=== PATIENT | male | born 1990 | race Caucasian/White ===

== ENCOUNTER 2016-11-05 11:55 | Emergency (ER) | payer OTHER ==
--- NOTE | 2016-11-05 12:12 | ED CLINICAL REPORT ---
Clinical Report - Physicians/Mid Levels [facility] [address] [place] [address] 11/05/2016 12:08 Patient: BEAU GANDHI Time Seen: 1211. Arrived- Police present. Historian- patient. HISTORY OF PRESENT ILLNESS Chief Complaint: needs clearance for alf--no complaints. This started just prior to arrival and is now gone. At its maximum, severity described as 0 / 10. When seen in the E.D., severity described as 0 / 10. Modifying factors. Not worsened by anything. Not relieved by anything. No current or associated symptoms. (Police state pt was caught stealing a car, and after a short winsome in the car, fled on foot. Police state pt gave up fleeing after a short distance, and was arrested without incident. Pt denies injury or complaints. No recent illness.). Similar symptoms previously: None. Recent medical care: Not recently seen/assessed. REVIEW OF SYSTEMS No fever, sore throat, sinus drainage, nasal congestion or cough. No difficulty breathing, chest pain, abdominal pain, nausea or vomiting. No diarrhea, black stools, chills, difficulty with urination or skin rash. No back pain, calf pain, headache, blackouts or double vision. No difficulty with ambulation. All systems otherwise negative, except as recorded above. PAST HISTORY Problems: Ureterolithiasis. Pharyngitis. Tetanus Status. Depression. Anxiety Reaction. Additional Surgeries: no known surgeries. Medications: None. Allergies: No Known Drug Allergy. SOCIAL HISTORY Smoker- current status unknown. Occasional alcohol use. No drug use. ADDITIONAL NOTES The nursing notes have been reviewed. PHYSICAL EXAM Vital Signs: 11/05/2016 12:12 BP: 131/81. HR: 105. RR: 16. Temp: 98.9 F. Pain level now: 0/10. 11/05/2016 12:12 O2 saturation: 95%. Have been reviewed. Appearance: Alert. No acute distress. Eyes: Pupils equal, round and reactive to light. Eyes normal inspection. ENT: Nose normal. Neck: Normal inspection. CVS: Normal heart rate and rhythm. Heart sounds normal. Pulses normal. Respiratory: No respiratory distress. Breath sounds normal. Abdomen: No visible injury. Soft and nontender. Back: Normal inspection. Skin: Skin warm and dry. Normal skin color. No rash. Normal skin turgor. Extremities: No lower extremity edema. Neuro: Oriented X 3. No motor deficit. No sensory deficit. LABS, X-RAYS, AND EKG Pulse Oximetry: 11/05/2016 12:12 O2 saturation: 95%. (FIO2 - room air). Interpretation: normal. PROGRESS AND PROCEDURES Course of Care: No emergent condition identified. Patient counseled in person regarding the patient's stable condition, diagnosis and need for follow-up. Concerns were addressed. Old medical records reviewed. Disposition: Discharged. Condition: stable. CLINICAL IMPRESSION Normal exam upon presentation and while in the ED. INSTRUCTIONS (CLEAR TO BOOK.). Warnings: GENERAL WARNINGS: Return or contact your physician immediately if your condition worsens or changes unexpectedly, if not improving as expected, or if other problems arise. Follow-up: Follow up with your doctor as needed. Understanding of the discharge instructions verbalized by patient. (Electronically signed by Jihan Galarza MD 11/07/2016 13:51)
--- NOTE | 2016-11-05 12:12 | ED CLINICAL REPORT ---
Clinical Report - Physicians/Mid Levels [facility] [address] [place] [address] 11/05/2016 12:08 Patient: BEAU GANDHI Time Seen: 1211. Arrived- Police present. Historian- patient. HISTORY OF PRESENT ILLNESS Chief Complaint: needs clearance for assisted--no complaints. This started just prior to arrival and is now gone. At its maximum, severity described as 0 / 10. When seen in the E.D., severity described as 0 / 10. Modifying factors. Not worsened by anything. Not relieved by anything. No current or associated symptoms. (Police state pt was caught stealing a car, and after a short winsome in the car, fled on foot. Police state pt gave up fleeing after a short distance, and was arrested without incident. Pt denies injury or complaints. No recent illness.). Similar symptoms previously: None. Recent medical care: Not recently seen/assessed. REVIEW OF SYSTEMS No fever, sore throat, sinus drainage, nasal congestion or cough. No difficulty breathing, chest pain, abdominal pain, nausea or vomiting. No diarrhea, black stools, chills, difficulty with urination or skin rash. No back pain, calf pain, headache, blackouts or double vision. No difficulty with ambulation. All systems otherwise negative, except as recorded above. PAST HISTORY Problems: Ureterolithiasis. Pharyngitis. Tetanus Status. Depression. Anxiety Reaction. Additional Surgeries: no known surgeries. Medications: None. Allergies: No Known Drug Allergy. SOCIAL HISTORY Smoker- current status unknown. Occasional alcohol use. No drug use. ADDITIONAL NOTES The nursing notes have been reviewed. PHYSICAL EXAM Vital Signs: 11/05/2016 12:12 BP: 131/81. HR: 105. RR: 16. Temp: 98.9 F. Pain level now: 0/10. 11/05/2016 12:12 O2 saturation: 95%. Have been reviewed. Appearance: Alert. No acute distress. Eyes: Pupils equal, round and reactive to light. Eyes normal inspection. ENT: Nose normal. Neck: Normal inspection. CVS: Normal heart rate and rhythm. Heart sounds normal. Pulses normal. Respiratory: No respiratory distress. Breath sounds normal. Abdomen: No visible injury. Soft and nontender. Back: Normal inspection. Skin: Skin warm and dry. Normal skin color. No rash. Normal skin turgor. Extremities: No lower extremity edema. Neuro: Oriented X 3. No motor deficit. No sensory deficit. LABS, X-RAYS, AND EKG Pulse Oximetry: 11/05/2016 12:12 O2 saturation: 95%. (FIO2 - room air). Interpretation: normal. PROGRESS AND PROCEDURES Course of Care: No emergent condition identified. Patient counseled in person regarding the patient's stable condition, diagnosis and need for follow-up. Concerns were addressed. Old medical records reviewed. Disposition: Discharged. Condition: stable. CLINICAL IMPRESSION Normal exam upon presentation and while in the ED. INSTRUCTIONS (CLEAR TO BOOK.). Warnings: GENERAL WARNINGS: Return or contact your physician immediately if your condition worsens or changes unexpectedly, if not improving as expected, or if other problems arise. Follow-up: Follow up with your doctor as needed. Understanding of the discharge instructions verbalized by patient. (Electronically signed by Jihan Galarza MD 11/07/2016 13:51)
--- NOTE | 2016-11-08 08:05 | ED DISCHARGE INSTRUCTIONS ---
Patient: BEAU GANDHI General Instructions [facility] VisitID: [id number] [address] [place] [address] 26y, M Registration Date/Time: 11/05/2016 Normal exam upon presentation and while in the ED. INSTRUCTIONS (CLEAR TO BOOK.). Warnings: GENERAL WARNINGS: Return or contact your physician immediately if your condition worsens or changes unexpectedly, if not improving as expected, or if other problems arise. Follow-up: Follow up with your doctor as needed. Understanding of the discharge instructions verbalized by patient. ADDITIONAL INFORMATION Long Term Clearance You have been evaluated today for any illness or injury that may require special attention while you are in correction. It appears that your condition is stable at this time. You have been medically cleared for correction. Follow any special advice given regarding the care of any illness or injury present. Notify correction personnel if there is any worsening of your symptoms or if new symptoms appear. When you are released from correction, follow up with your own medical doctor or the clinic that you have been referred to. If you do not know where to go after you are released, contact us for referral information. You have been given the following additional information: Long Term Clearance (Electronically signed by Jihan Galarza MD 11/07/2016 13:51)
--- NOTE | 2016-11-08 08:05 | ED MED RECONCILIATION SUMMARY ---
Patient: BEAU GANDHI Medication Reconciliation Report [facility] VisitID: [id number] [address] [place] [address] 26y, M Registration Date/Time: 11/05/2016 Weight: 83.9 kg Height/Length: 71 in. BMI: 25.8 ALLERGIES: No Known Drug Allergy The patient's Home Medications are listed below: NONE. The source(s) of the original Home Medication information: Not obtained. The following Medications were given to the patient in the Emergency Department: None. The following Medications were prescribed to the patient: None.
--- NOTE | 2016-11-08 08:05 | ED NURSING NOTES ---
Clinical Report - Nurses [facility] [address] [place] [address] 11/05/2016 12:08 [id number] Triage time 12:13 Nov 05 2016. Acuity: LEVEL 5. Chief Complaint: (CTB, denies complaint). 12:14 11/05/16. SEPSIS SCREEN: Sepsis Screen. Negative (no infection suspected/documented). LUPE COMA SCORE: Lupe Coma Scale: 15- eyes open spontaneously (4); best verbal response- oriented x 4 (5); best motor response- obeys commands (6). --12:16 Ivett Gomes R.N. 12:12 11/05/16. BP: 131/81 (regular adult cuff) taken on the left arm, while sitting. HR: 105. RR: 16. Temp: 98.9 F (oral). Pain level now: 0/10. --12:16 Ivett Gomes R.N. 12:12 11/05/16. O2 saturation: 95% on room air. --18:49 Ivett Gomes R.N. Weight: 83.9 kg estimated. Height/Length: 71 inches Estimated. BMI: 25.8. --12:10 Ivett Gomes R.N. Medications None. --12:14 Ivett Gomes R.N. Allergies No Known Drug Allergy. --12:14 Ivett Gomes R.N. History Historian: patient. 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 --12:16 Ivett Gomes R.N. PROBLEMS: URI. Ureterolithiasis. Pharyngitis. Back Pain. Abscess Check. Wound Infection. Abscess. Laceration. Skin Avulsion. Tetanus Status. Depression. Anxiety Reaction. --12:14 Ivett Gomes R.N. ADDITIONAL SURGERIES: no known surgeries. Interventions To treatment room. --12:16 Ivett Gomes R.N. PHYSICAL ASSESSMENT Ambulatory to room. --08:05 Gomes, Ivett, R.N. DISPOSITION / DISCHARGE 12:17 11/05/16. --12:17 Ivett Gomes R.N. 12:16 11/05/16. BP: 131/81 (regular adult cuff) taken on the left arm, while sitting. HR: 105 (regular). RR: 16 (regular). Temp: 98.9 F (oral). Pain level now: 0/10. --12:17 Ivett Gomes R.N. 12:16 11/05/16. O2 saturation: 95%. --18:49 Ivett Gomes R.N. Locked/Released at 11/08/2016 8:05 by Ivett Gomes R.N.
--- NOTE | 2016-11-08 08:05 | ED NURSING NOTES ---
Clinical Report - Nurses [facility] [address] [place] [address] 11/05/2016 12:08 [id number] Triage time 12:13 Nov 05 2016. Acuity: LEVEL 5. Chief Complaint: (CTB, denies complaint). 12:14 11/05/16. SEPSIS SCREEN: Sepsis Screen. Negative (no infection suspected/documented). LUPE COMA SCORE: Lupe Coma Scale: 15- eyes open spontaneously (4); best verbal response- oriented x 4 (5); best motor response- obeys commands (6). --12:16 Ivtet Gomes R.N. 12:12 11/05/16. BP: 131/81 (regular adult cuff) taken on the left arm, while sitting. HR: 105. RR: 16. Temp: 98.9 F (oral). Pain level now: 0/10. --12:16 Ivett Gomes R.N. 12:12 11/05/16. O2 saturation: 95% on room air. --18:49 Ivett Gomes R.N. Weight: 83.9 kg estimated. Height/Length: 71 inches Estimated. BMI: 25.8. --12:10 Ivett Gomes R.N. Medications None. --12:14 Ivett Gomes R.N. Allergies No Known Drug Allergy. --12:14 Ivett Gomes R.N. History Historian: patient. 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 --12:16 Ivett Gomes R.N. PROBLEMS: URI. Ureterolithiasis. Pharyngitis. Back Pain. Abscess Check. Wound Infection. Abscess. Laceration. Skin Avulsion. Tetanus Status. Depression. Anxiety Reaction. --12:14 Ivett Gomes R.N. ADDITIONAL SURGERIES: no known surgeries. Interventions To treatment room. --12:16 Ivett Gomes R.N. PHYSICAL ASSESSMENT Ambulatory to room. --08:05 Gomes, Ivett, R.N. DISPOSITION / DISCHARGE 12:17 11/05/16. --12:17 Ivett Gomes R.N. 12:16 11/05/16. BP: 131/81 (regular adult cuff) taken on the left arm, while sitting. HR: 105 (regular). RR: 16 (regular). Temp: 98.9 F (oral). Pain level now: 0/10. --12:17 Ivett Gomes R.N. 12:16 11/05/16. O2 saturation: 95%. --18:49 Ivett Gomes R.N. Locked/Released at 11/08/2016 8:05 by Ivett Gomes R.N.
--- NOTE | 2016-11-08 08:05 | ED MED RECONCILIATION SUMMARY ---
Patient: BEAU GANDHI Medication Reconciliation Report [facility] VisitID: [id number] [address] [place] [address] 26y, M Registration Date/Time: 11/05/2016 Weight: 83.9 kg Height/Length: 71 in. BMI: 25.8 ALLERGIES: No Known Drug Allergy The patient's Home Medications are listed below: NONE. The source(s) of the original Home Medication information: Not obtained. The following Medications were given to the patient in the Emergency Department: None. The following Medications were prescribed to the patient: None.
--- NOTE | 2016-11-08 08:05 | ED MAR SUMMARY ---
..... Medication Administration Record [facility] [address] [place], [place] [id number] Patient: BEAU GANDHI Visit ID: [id number] 26y, M Weight: 83.9 kg Height/Length: 71 in BMI: 25.8 ALLERGIES: No Known Drug Allergy
--- NOTE | 2016-11-08 08:05 | ED DISCHARGE INSTRUCTIONS ---
Patient: BEAU GANDHI General Instructions [facility] VisitID: [id number] [address] [place] [address] 26y, M Registration Date/Time: 11/05/2016 Normal exam upon presentation and while in the ED. INSTRUCTIONS (CLEAR TO BOOK.). Warnings: GENERAL WARNINGS: Return or contact your physician immediately if your condition worsens or changes unexpectedly, if not improving as expected, or if other problems arise. Follow-up: Follow up with your doctor as needed. Understanding of the discharge instructions verbalized by patient. ADDITIONAL INFORMATION Group Home Clearance You have been evaluated today for any illness or injury that may require special attention while you are in care home. It appears that your condition is stable at this time. You have been medically cleared for care home. Follow any special advice given regarding the care of any illness or injury present. Notify care home personnel if there is any worsening of your symptoms or if new symptoms appear. When you are released from care home, follow up with your own medical doctor or the clinic that you have been referred to. If you do not know where to go after you are released, contact us for referral information. You have been given the following additional information: Group Home Clearance (Electronically signed by Jihan Galarza MD 11/07/2016 13:51)
--- NOTE | 2016-11-08 08:05 | ED MAR SUMMARY ---
..... Medication Administration Record [facility] [address] [place], [place] [id number] Patient: BEAU GANDHI Visit ID: [id number] 26y, M Weight: 83.9 kg Height/Length: 71 in BMI: 25.8 ALLERGIES: No Known Drug Allergy
== END 2016-11-05 12:20 | disposition home or self-care (01) ==
LOC: ED SRH 11:55
DX: Z02.89 Encounter for other administrative examinations (principal)

== ENCOUNTER 2017-01-31 15:17 | Emergency (ER) | payer OTHER ==
--- NOTE | 2017-01-31 15:51 | DIAGNOSTIC IMAGING REPORT ---
PROCEDURE: XR CHEST 2 VIEW INDICATION: DOG BITES TECHNIQUE: PA and lateral views. COMPARISON: Comparison 07/24/2016 FINDINGS: Lungs are clear. Heart and mediastinum are normal. Thorax is normal. IMPRESSION: 1. Negative chest.
--- NOTE | 2017-01-31 16:04 | ED CLINICAL REPORT ---
Clinical Report - Physicians/Mid Levels [facility] [address] [place] [address] 01/31/2017 15:18 Patient: BEAU GANDHI Time Seen: 1508; upon arrival, initial patient contact, initial documentation, patient care assumed. Arrived- In handcuffs. Police present. Historian- patient and police. HISTORY OF PRESENT ILLNESS Location of injuries- chest, right arm, right elbow, right forearm, right wrist and right hand and left arm, left elbow, left forearm, left wrist and left hand. Chief Complaint: DOG BITE. The injury occurred just prior to arrival. (running from police K9). (thakur and bushes). No difficulty breathing. Treatment LOFTER- applied bandage. REVIEW OF SYSTEMS No numbness, difficulty breathing, weakness or chest pain. All systems otherwise negative, except as recorded above. PAST HISTORY See nurses notes. PROBLEMS: Ureterolithiasis. Pharyngitis. Wound Infection. Abscess. Laceration. Depression. Anxiety Reaction. --15:20 Ileana Bermeo R.N. Tetanus immunization status is up-to-date. SOCIAL HISTORY Heavy tobacco smoker. Regular alcohol use. History of heavy IV drug use: heroin, methamphetamines. Recently used drugs just prior to arrival. Under influence in ED. No recent travel. Is a local resident. FAMILY HISTORY No significant family medical history. ADDITIONAL NOTES The nursing notes have been reviewed with agreement regarding the chief complaint, HPI, ROS, PMH and patient medications and allergies. PHYSICAL EXAM Vital Signs: 01/31/2017 15:10 BP: 123/61. HR: 116. RR: 18. O2 saturation: 99%. Temp: 99.4 F. Pain level now: 9/10. Have been reviewed as abnormal and appear to be correct. Blood pressure normal. Tachycardic. Respiratory rate normal. Temperature normal. Oxygen saturation normal. Appearance: Alert. Oriented X3. No acute distress. (pt dirty with mud, dirt and wet from running thru [place], bushes and swamp type water). Head: Head normal on inspection and non-tender. Eyes: Eyes normal inspection. ENT: Ears normal on inspection. Nose normal on inspection. Mouth normal on inspection. Neck: Normal inspection. Neck non-tender. Painless ROM. CVS: Tachycardia (ventricular rate = 110). Heart sounds abnormal. Pulses normal. Respiratory: Chest tender. Chest wall injury: mild tenderness, superficial laceration and small abrasion located in the upper, middle, lower, left and anterior chest. No swelling. No ecchymosis. No deformity. No injury to the costal cartilage, sternum, manubrium or xiphoid. No splinting present. No paradoxical movement. Breath sounds abnormal. Mild bilateral rhonchi present diffusely. Chest abnormal on inspection. (multiple superficial pw/abrasions to chest, no closure needed, no active bleeding). Abdomen: Normal inspection. Soft and nontender. Back: Normal inspection. No tenderness. ROM normal. Skin: Skin not intact. Skin warm and dry. Normal skin color. Normal skin turgor. Extremities: Abnormal inspection. Extremities not atraumatic. Left elbow: mild tenderness and multiple puncture wounds and small abrasions located in the area of the medial and lateral elbow (x3 small pw with abrasions to elbow, mild active bleeding, no closure needed). No erythema, swelling, laceration, ecchymosis or foreign body. No deformity. No joint effusion or limitation in ROM. Pelvis stable. No lower extremity edema. (multiple superficial abrasions/scratches to B arms). Neuro: Oriented X 3. No motor deficit. No sensory deficit. LABS, X-RAYS, AND EKG X-Rays: Chest X-ray negative. Chest X-ray: (IMPRESSION: 1. Negative chest. Electronically Final signed by:Washington Le MD 01/31/2017 3:52:12 PM). The X-rays were interpreted by the radiologist and contemporaneously by me. PROGRESS AND PROCEDURES Patient counseled in person regarding the patient's stable condition, test results and diagnosis. 16:04. Differential Diagnosis: Other possible considerations: dog bite, abrasions, lacs, pneumo, rib fx, substance abuse. Above considerations are based on history, physical exam, reassessment and X-Ray data. Differential diagnosis was discussed with patient. Disposition: Discharged to [facility] in good and improved condition (16:04). Condition: good and stable. CLINICAL IMPRESSION Multiple superficial and deep dog bites and anterior to the left bites and anterior chest and left elbow. Multiple superficial abrasions to the left anterior chest, right upper arm, right elbow, right forearm, right wrist and right hand and left upper arm, left elbow, left forearm, left wrist and left hand. Chronic substance abuse- marijuana, heroin, methamphetamines. INSTRUCTIONS Protect wound and keep wound area clean. Soak in warm soapy water twice daily. Apply neosporin twice daily. (patient is medically cleared to go with police to [facility]). Warnings: GENERAL WARNINGS: Return or contact your physician immediately if your condition worsens or changes unexpectedly, if not improving as expected, or if other problems arise. Specifically return if problem worsens. Prescription Medications: Augmentin 875 mg: take 1 tablet orally every 12 hours for 10 days. No refill. Follow-up: Follow up with your doctor in about three days as needed and for wound check. Call for an appointment. Summary of care provided to patient. Understanding of the discharge instructions verbalized by patient. (Electronically signed by Susan Colbert A.R.N.P. 01/31/2017 17:49)
--- NOTE | 2017-01-31 16:04 | ED NURSING NOTES ---
Clinical Report - Nurses [facility] [address] [place] [address] 01/31/2017 15:18 Patient: BEAU GANDHI TRIAGE Triage time 1510. Acuity: LEVEL 4. Chief Complaint: DOG BITE (Pt in by Clinical Training Coordinator with police dog bites to left elbow area annd aterior chest. abrasions and bruises noted to chest). 15:10. MELECIO COMA SCORE: [place] Coma Scale: 15- eyes open spontaneously (4); best verbal response- oriented x 4 (5); best motor response- obeys commands (6). --15:29 Ileana Bermeo R.N. 15:10 01/31/17. BP: 123/61. HR: 116. RR: 18. O2 saturation: 99%. Temp: 99.4 F. Pain level now: 05/27. --15:29 Ileana Bermeo R.N. Weight: 81.6 kg stated. Height/Length: 71 inches Per Patient. BMI: 25.1. --15:18 Ileana Bermeo R.N. Medications None. --15:20 Ileana Bermeo R.N. Allergies No Known Drug Allergy. --15:20 Ileana Bermeo R.N. History Historian: patient. Arrived in police custody and accompanied by police. No primary care physician. The patient has had difficulty breathing. PAST MEDICAL HX: Negative. Tetanus status: up-to-date. SOCIAL HX: Heavy tobacco smoker (cigarette)- 1-2 packs per day. Occasional alcohol use. History of drug use: heroin, methamphetamines. (last used 1 hour ago). --15:29 Ileana Bermeo R.N. PROBLEMS: Ureterolithiasis. Pharyngitis. Wound Infection. Abscess. Laceration. Depression. Anxiety Reaction. --15:20 Ileana Bermeo R.N. Interventions ID band on patient. To treatment room. --15:29 Jean-Claude, Ileana, R.N. PHYSICAL ASSESSMENT Ambulatory to room. Patient gowned. GENERAL / NEURO / PSYCH: Alert. Oriented X 4. Appears in pain. RESPIRATORY: Respirations not labored. Chest wall: tenderness and multiple superficial abrasions. CVS: Pulses within normal limits. GI / : Abdomen soft. EXTREMITIES: Left elbow: tenderness, multiple superficial abrasions and subcutaneous 1.0 cm laceration with bleeding. SKIN: Skin is cool. --15:30 Ileana Bermeo R.N. NURSING PROGRESS NOTES 15:10. Patient gowned. Reassurance given. Patient identifiers checked. Call light placed in reach. Side rails up. Bed placed in lowest position. Patient ready for evaluation- chart flagged. ( wet clothes removed, mesh panties and paper pants placed on pt --given warm blanket). --15:30 Ileana Bermeo R.N. 15:30. Wound cleansed with water and Hibiclens (wounds on chest cleaned and neosporin oint placed). --15:38 Ileana Bermeo R.N. 15:37. Patient transported to radiology by stretcher with tech. --15:39 Ileana Bermeo R.N. 15:45 01/31/17. Patient returned from radiology by stretcher with tech. --15:45 Ileana Bermeo R.N. 15:55. Wound cleansed with sterile saline and Hibiclens. Wound irrigated with sterile NS using a 60 mL syringe; patient tolerated procedure well (wounds x 3 to left elbow). --16:01 Ileana Bermeo R.N. 16:17 01/31/17. Applied clean dressing consisting of Band-Aid, following the application of antibiotic ointment. --16:17 Ileana Bermeo R.N. DISPOSITION / DISCHARGE 16:10. Condition at departure: improved and stable. No learning barriers present. Discharge instructions provided and reviewed with the patient. Reviewed medication(s) (tylenol, motrin, augmentin). Reviewed wound care instructions. Patient verbalized understanding. Written instructions provided in Eritrean. The patient was discharged to police department facility and accompanied by a police escort. He left the Emergency Department ambulatory and via police department vehicle. --16:16 Ileana Bermeo R.N. 16:15 01/31/17. BP: 112/59. HR: 95. RR: 18. O2 saturation: 100%. Temp: deferred. Pain level now: 04/26. --16:16 Ileana Bermeo R.N. Locked/Released at 01/31/2017 16:17 by Ileana Bermeo R.N.
--- NOTE | 2017-01-31 16:04 | ED ORDER SUMMARY ---
..... Patient: BEAU GANDHI OrderSheet [facility] VisitID: [id number] [address] [place] [address] 26y, M Registration Date/Time: 01/31/2017 ORDER SHEET Weight: 81.6 kg (stated) Allergies: No Known Drug Allergy GENERAL ORDERS: Chest 2V Urgent (15:18 01/31/2017 HBivens A.R.N.P.) (Ack 15:21 LNations ER Tech1) (16:01 DDean R.N.) Irrigate Wounds (15:44 01/31/2017 HBivens A.R.N.P.) (16:01 DDean R.N.) MEDICATION ORDERS: IV FLUIDS: ORDER SHEET NOTES: [Electronically signed by Ileana Bermeo R.N. (16:17 01/31/2017)] [Electronically signed by Susan ColbertR.N.P. (17:49 01/31/2017)] [Electronically locked/signed by Ileana Bermeo R.N. (16:17 01/31/2017)]
--- NOTE | 2017-01-31 16:04 | ED NURSING NOTES ---
Clinical Report - Nurses [facility] [address] [place] [address] 01/31/2017 15:18 Patient: BEAU GANDHI TRIAGE Triage time 1510. Acuity: LEVEL 4. Chief Complaint: DOG BITE (Pt in by Maturity Checker with police dog bites to left elbow area annd aterior chest. abrasions and bruises noted to chest). 15:10. MELECIO COMA SCORE: [place] Coma Scale: 15- eyes open spontaneously (4); best verbal response- oriented x 4 (5); best motor response- obeys commands (6). --15:29 Ileana Bermeo R.N. 15:10 01/31/17. BP: 123/61. HR: 116. RR: 18. O2 saturation: 99%. Temp: 99.4 F. Pain level now: 05/27. --15:29 Ileana Bermeo R.N. Weight: 81.6 kg stated. Height/Length: 71 inches Per Patient. BMI: 25.1. --15:18 Ileana Bermeo R.N. Medications None. --15:20 Ileana Bermeo R.N. Allergies No Known Drug Allergy. --15:20 Ileana Bermeo R.N. History Historian: patient. Arrived in police custody and accompanied by police. No primary care physician. The patient has had difficulty breathing. PAST MEDICAL HX: Negative. Tetanus status: up-to-date. SOCIAL HX: Heavy tobacco smoker (cigarette)- 1-2 packs per day. Occasional alcohol use. History of drug use: heroin, methamphetamines. (last used 1 hour ago). --15:29 Ileana Bermeo R.N. PROBLEMS: Ureterolithiasis. Pharyngitis. Wound Infection. Abscess. Laceration. Depression. Anxiety Reaction. --15:20 Ileana Bermeo R.N. Interventions ID band on patient. To treatment room. --15:29 Jean-Claude, Ileana, R.N. PHYSICAL ASSESSMENT Ambulatory to room. Patient gowned. GENERAL / NEURO / PSYCH: Alert. Oriented X 4. Appears in pain. RESPIRATORY: Respirations not labored. Chest wall: tenderness and multiple superficial abrasions. CVS: Pulses within normal limits. GI / : Abdomen soft. EXTREMITIES: Left elbow: tenderness, multiple superficial abrasions and subcutaneous 1.0 cm laceration with bleeding. SKIN: Skin is cool. --15:30 Ileana Bermeo R.N. NURSING PROGRESS NOTES 15:10. Patient gowned. Reassurance given. Patient identifiers checked. Call light placed in reach. Side rails up. Bed placed in lowest position. Patient ready for evaluation- chart flagged. ( wet clothes removed, mesh panties and paper pants placed on pt --given warm blanket). --15:30 Ileana Bermeo R.N. 15:30. Wound cleansed with water and Hibiclens (wounds on chest cleaned and neosporin oint placed). --15:38 Ileana Bermeo R.N. 15:37. Patient transported to radiology by stretcher with tech. --15:39 Ileana Bermeo R.N. 15:45 01/31/17. Patient returned from radiology by stretcher with tech. --15:45 Ileana Bermeo R.N. 15:55. Wound cleansed with sterile saline and Hibiclens. Wound irrigated with sterile NS using a 60 mL syringe; patient tolerated procedure well (wounds x 3 to left elbow). --16:01 Ileana Bermeo R.N. 16:17 01/31/17. Applied clean dressing consisting of Band-Aid, following the application of antibiotic ointment. --16:17 Ileana Bermeo R.N. DISPOSITION / DISCHARGE 16:10. Condition at departure: improved and stable. No learning barriers present. Discharge instructions provided and reviewed with the patient. Reviewed medication(s) (tylenol, motrin, augmentin). Reviewed wound care instructions. Patient verbalized understanding. Written instructions provided in Ghanaian. The patient was discharged to police department facility and accompanied by a police escort. He left the Emergency Department ambulatory and via police department vehicle. --16:16 Ileana Bermeo R.N. 16:15 01/31/17. BP: 112/59. HR: 95. RR: 18. O2 saturation: 100%. Temp: deferred. Pain level now: 04/26. --16:16 Ileana Bermeo R.N. Locked/Released at 01/31/2017 16:17 by Ileana Bermeo R.N.
--- NOTE | 2017-01-31 16:04 | ED CLINICAL REPORT ---
Clinical Report - Physicians/Mid Levels [facility] [address] [place] [address] 01/31/2017 15:18 Patient: BEAU GANDHI Time Seen: 1508; upon arrival, initial patient contact, initial documentation, patient care assumed. Arrived- In handcuffs. Police present. Historian- patient and police. HISTORY OF PRESENT ILLNESS Location of injuries- chest, right arm, right elbow, right forearm, right wrist and right hand and left arm, left elbow, left forearm, left wrist and left hand. Chief Complaint: DOG BITE. The injury occurred just prior to arrival. (running from police K9). (thakur and bushes). No difficulty breathing. 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 REVIEW OF SYSTEMS No numbness, difficulty breathing, weakness or chest pain. All systems otherwise negative, except as recorded above. PAST HISTORY See nurses notes. PROBLEMS: Ureterolithiasis. Pharyngitis. Wound Infection. Abscess. Laceration. Depression. Anxiety Reaction. --15:20 Ileana Bermeo R.N. Tetanus immunization status is up-to-date. SOCIAL HISTORY Heavy tobacco smoker. Regular alcohol use. History of heavy IV drug use: heroin, methamphetamines. Recently used drugs just prior to arrival. Under influence in ED. No recent travel. Is a local resident. FAMILY HISTORY No significant family medical history. ADDITIONAL NOTES The nursing notes have been reviewed with agreement regarding the chief complaint, HPI, ROS, PMH and patient medications and allergies. PHYSICAL EXAM Vital Signs: 01/31/2017 15:10 BP: 123/61. HR: 116. RR: 18. O2 saturation: 99%. Temp: 99.4 F. Pain level now: 9/10. Have been reviewed as abnormal and appear to be correct. Blood pressure normal. Tachycardic. Respiratory rate normal. Temperature normal. Oxygen saturation normal. Appearance: Alert. Oriented X3. No acute distress. (pt dirty with mud, dirt and wet from running thru [place]akur, bushes and swamp type water). Head: Head normal on inspection and non-tender. Eyes: Eyes normal inspection. ENT: Ears normal on inspection. Nose normal on inspection. Mouth normal on inspection. Neck: Normal inspection. Neck non-tender. Painless ROM. CVS: Tachycardia (ventricular rate = 110). Heart sounds abnormal. Pulses normal. Respiratory: Chest tender. Chest wall injury: mild tenderness, superficial laceration and small abrasion located in the upper, middle, lower, left and anterior chest. No swelling. No ecchymosis. No deformity. No injury to the costal cartilage, sternum, manubrium or xiphoid. No splinting present. No paradoxical movement. Breath sounds abnormal. Mild bilateral rhonchi present diffusely. Chest abnormal on inspection. (multiple superficial pw/abrasions to chest, no closure needed, no active bleeding). Abdomen: Normal inspection. Soft and nontender. Back: Normal inspection. No tenderness. ROM normal. Skin: Skin not intact. Skin warm and dry. Normal skin color. Normal skin turgor. Extremities: Abnormal inspection. Extremities not atraumatic. Left elbow: mild tenderness and multiple puncture wounds and small abrasions located in the area of the medial and lateral elbow (x3 small pw with abrasions to elbow, mild active bleeding, no closure needed). No erythema, swelling, laceration, ecchymosis or foreign body. No deformity. No joint effusion or limitation in ROM. Pelvis stable. No lower extremity edema. (multiple superficial abrasions/scratches to B arms). Neuro: Oriented X 3. No motor deficit. No sensory deficit. LABS, X-RAYS, AND EKG X-Rays: Chest X-ray negative. Chest X-ray: (IMPRESSION: 1. Negative chest. Electronically Final signed by:Washington Le MD 01/31/2017 3:52:12 PM). The X-rays were interpreted by the radiologist and contemporaneously by me. PROGRESS AND PROCEDURES Patient counseled in person regarding the patient's stable condition, test results and diagnosis. 16:04. Differential Diagnosis: Other possible considerations: dog bite, abrasions, lacs, pneumo, rib fx, substance abuse. Above considerations are based on history, physical exam, reassessment and X-Ray data. Differential diagnosis was discussed with patient. Disposition: Discharged to [facility] in good and improved condition (16:04). Condition: good and stable. CLINICAL IMPRESSION Multiple superficial and deep dog bites and anterior to the left bites and anterior chest and left elbow. Multiple superficial abrasions to the left anterior chest, right upper arm, right elbow, right forearm, right wrist and right hand and left upper arm, left elbow, left forearm, left wrist and left hand. Chronic substance abuse- marijuana, heroin, methamphetamines. INSTRUCTIONS Protect wound and keep wound area clean. Soak in warm soapy water twice daily. Apply neosporin twice daily. (patient is medically cleared to go with police to [facility]). Warnings: GENERAL WARNINGS: Return or contact your physician immediately if your condition worsens or changes unexpectedly, if not improving as expected, or if other problems arise. Specifically return if problem worsens. Prescription Medications: Augmentin 875 mg: take 1 tablet orally every 12 hours for 10 days. No refill. Follow-up: Follow up with your doctor in about three days as needed and for wound check. Call for an appointment. Summary of care provided to patient. Understanding of the discharge instructions verbalized by patient. (Electronically signed by Susan Colbert A.R.N.P. 01/31/2017 17:49)
--- NOTE | 2017-01-31 16:04 | ED ORDER SUMMARY ---
..... Patient: BEAU GANDHI OrderSheet [facility] VisitID: [id number] [address] [place] [address] 26y, M Registration Date/Time: 01/31/2017 ORDER SHEET Weight: 81.6 kg (stated) Allergies: No Known Drug Allergy GENERAL ORDERS: Chest 2V Urgent (15:18 01/31/2017 HBivens A.R.N.P.) (Ack 15:21 LNations ER Tech1) (16:01 DDean R.N.) Irrigate Wounds (15:44 01/31/2017 HBivens A.R.N.P.) (16:01 DDean R.N.) MEDICATION ORDERS: IV FLUIDS: ORDER SHEET NOTES: [Electronically signed by Ileana Bermeo R.N. (16:17 01/31/2017)] [Electronically signed by Susan ColbertR.N.P. (17:49 01/31/2017)] [Electronically locked/signed by Ileana Bermeo R.N. (16:17 01/31/2017)]
--- NOTE | 2017-01-31 17:49 | ED DISCHARGE INSTRUCTIONS ---
Patient: BEAU GANDHI General Instructions [facility] VisitID: [id number] [place] [address] 26y, M Registration Date/Time: 01/31/2017 Multiple superficial and deep dog bites and anterior to the left bites and anterior chest and left elbow. Multiple superficial abrasions to the left anterior chest, right upper arm, right elbow, right forearm, right wrist and right hand and left upper arm, left elbow, left forearm, left wrist and left hand. Chronic substance abuse- marijuana, heroin, methamphetamines. INSTRUCTIONS Protect wound and keep wound area clean. Soak in warm soapy water twice daily. Apply neosporin twice daily. (patient is medically cleared to go with police to assisted). Warnings: GENERAL WARNINGS: Return or contact your physician immediately if your condition worsens or changes unexpectedly, if not improving as expected, or if other problems arise. Specifically return if problem worsens. Prescription Medications: Augmentin 875 mg: take 1 tablet orally every 12 hours for 10 days. No refill. Follow-up: Follow up with your doctor in about three days as needed and for wound check. Call for an appointment. Summary of care provided to patient. Understanding of the discharge instructions verbalized by patient. ADDITIONAL INFORMATION Dog Bite If a dog has bitten you and the wound is deep enough to break the skin, an infection may occur. Therefore, you should watch for the warning signs listed below. The doctor may not close the wound completely. This is to allow fluid to drain in the event of an infection. Home Care Watch the wound for signs of infection listed below. In certain types of bites, antibiotics may be prescribed. Begin taking these as soon as possible, as directed until they are all gone. Rabies Prevention If you live in an area where rabies occurs in wild animals, the rabies virus can be passed to cats and dogs. An infected animal can pass the rabies virus to you during a bite. If ahealthy-looking pet dog has bitten you, it should be kept in a secure area for the next 10 days to watch for signs of illness. If the pet wood sawyer wont cooperate with you, contact the [facility] animal control department (or local law enforcement). If the animal becomes ill or dies [id number] days, contact your animal control department at once. The animal must be tested for rabies. If the animal stays healthy for the next 10 days, then there is no danger of rabies in the dog or you. Pets fully vaccinated against rabies (2 shots) are at very low risk for the infection. However, because human rabies is almost always fatal, any biting dog should be kept in confinement for 10 days as an extra precaution. If a stray dog bit you, contact the animal control department. They can provide information on capture, quarantine, and animal rabies testing. If you are unable to locate the animal that bit you in the next 2days, and if rabies exists in your region, you must be evaluated for the rabies vaccine series. Contact your doctor or return here promptly. All animal bites should be reported to the [facility] animal control department. If you were not given a form to fill out, you can report it yourself by calling. Follow Up with your doctor as advised. Most skin wounds heal within 10 days. However, an infection may occur even with proper treatment. Check your woundevery 6 hoursfor 2 days, then at least once a day for the next two days for the signs of infection listed below. Get Prompt Medical Attention if any of the following occur: Signs of infection: Spreading redness Increased pain or swelling Fever of 100.4F (38C) or higher, or as directed by your healthcare provider Colored fluid or pus draining from the wound Headache, confusion, strange behavior, or a seizure (signs of a rabies infection) Laceration, Trunk (Sutures, Lorena, Tape, Glue) A laceration is a cut through the skin. This will usually require stitches (sutures) or favio if it is deep. Minor cuts may be treated with surgical tape closures or skin adhesive. Home care The following guidelines will help you care for you laceration at home: 1) Keep the wound clean and dry. If a bandage was applied and it becomes wet or dirty, replace it. Otherwise, leave it in place for the first 24 hours, then change it once a day or as directed. 2) If stitches or favio were used, change the bandage daily after the first 24 hours. Each day, look at the wound for any of the warning signs listed below. After removing the bandage, wash the area with soap and water. Use a wet cotton swab to loosen and remove any blood or crust that forms. After cleaning, keep the wound clean and dry. Talk with your doctor before applying any antibiotic ointment to the wound. Reapply the bandage. You may remove the bandage and shower as usual after the first 24 hours, but do not soak the area in water (no tub baths or swimming) until the stitches or favio are removed. 3) If surgical glue was used, keep the area clean and dry. If it becomes wet, blot it dry with a towel. 4) If skin glue was used, do not scratch, rub, or pick at the adhesive film. Do not place tape directly over the film. Do not apply liquid, ointment or creams to the wound while the film is in place. Do not clean the wound with peroxide and do not apply ointments. Avoid activities that cause heavy sweating until the film has fallen off. Protect the wound from prolonged exposure to sunlight or tanning lamps. You may shower as usual but do not soak the wound in water (no baths or swimming). 5) The doctor may prescribe an antibiotic cream or ointment. Do not stop taking this medication until you have finished the precribed course or the doctor tells you to stop. The doctor may also prescribe medications for pain. Follow the doctor's instructions for taking these medications. If you have chronic liver or kidney disease or ever had a stomach ulcer or GI bleeding, talk with your doctor before using these medicines. Follow-up care Follow up with your health care provider. Most skin wounds heal within ten days. However, an infection may sometimes occur despite proper treatment. Therefore, check the wound daily for the signs of infection listed below. Stitches or favio should be removed within 714 days. If surgical tape closures were used, you may remove them yourself after ten days, if they have not fallen off by then. If skin glue was used, the film will fall off by itself in 510 days. When to seek medical care Get prompt medical attention if any of these occur: Increasing pain in the wound Redness, swelling, or pus coming from the wound For chest back or abdomen wounds, watch for shortness of breath, painful breathing, increasing back or abdomen pain, blood in the stool or urine, weakness, dizziness, or fainting. Fever of 100.4F (38C) or higher, or as directed by your health care provider If stitches or favio come apart or fall out before your next appointment If the surgical tape closures fall off within seven days, or the wound edges re-open Bleeding not controlled by direct pressure Abrasions Abrasions are skin scrapes. Their treatment depends on how large and deep the abrasion is. Home Care: If you were given a bandage, change it once a day. If your bandage sticks to the wound, soak it in warm water until it loosens. Wash the area with soap and water to remove all the cream/ointment. You may do this in a sink, under a tub faucet or shower. Rinse off the soap and pat dry with a clean towel. Reapply cream/ointment according to your doctor's instructions. This will prevent infection and help prevent the bandage from sticking. Cover the wound with a fresh non-stick bandage (Telfa). Repeat steps 1 to 4 daily, or as directed by your doctor. If the bandage becomes wet or dirty, change it as soon as possible. You may use acetaminophen (Tylenol) or ibuprofen (Motrin, Advil) to control pain, unless another pain medicine was prescribed. [ NOTE : If you have chronic liver or kidney disease or ever had a stomach ulcer or GI bleeding, talk with your doctor before using these medicines.] Do not use ibuprofen in children under six months of age. Follow Up with your physician or this facility as directed by our staff. Most skin wounds heal within ten days. However, an infection may occur despite proper treatment. Therefore, look for the early signs of infection listed below. Get Prompt Medical Attention if any of the following occur: Increasing pain in the wound Increasing redness or swelling Pus coming from the wound Fever of 100.4F (38C) or higher, or as directed by your healthcare provider Drug Abuse Use and abuse of such drugs as marijuana, amphetamines (speed, crank), cocaine, heroin or prescription pain medicines (Vicodin, codeine), sedatives and sleeping pills (Valium, Klonopin), PCP, mescaline and LSD may lead to addiction or dependence. Once this occurs, you are at greater risk for any of the following: Craving for the drug and unable to stop using the drug even though you think you want to stop (psychological dependence) Drug withdrawal symptoms if you stop taking the drug (physical dependence) Loss of your job or your family Arrest, conviction and assisted sentence for possession of an illegal substance or for driving under the influence of such a substance Accidental injuries to yourself or others while you are under the influence of the drug (in a car or at home). HIV infection (much greater risk if you use IV drugs) Other sexually transmitted diseases (herpes, chlamydia, gonorrhea and others) Severe and fatal infection of the heart valves (if you use IV drugs) Stroke, heart attack, hepatitis B or C, kidney failure from overdose Home Care: Admit you have a drug problem. Ask for help from your family and close friends. Seek professional help. This could be in the form of individual psychotherapy or counseling or an outpatient, inpatient, or residential drug treatment program. Join a self-help group for drug abuse. Avoid friends who abuse drugs themselves or tempt you to continue abusing drugs. Eat a balanced diet and begin a regular exercise program. Follow Up with your doctor or as advised by our staff. Contact one of the resources below for help. National [place] on Alcoholism and Drug Dependence www.ncadd.org 419-546-IPHT Narcotics Anonymous www.na.org 575-987-5427 National Alcohol and Substance Abuse Information Center (for referral to treatment programs) www.[employer] 618-152-1491 Get Prompt Medical Attention if any of the following occur: Agitation, anxiety, unable to sleep Unintended weight loss (more than 10 to 15 pounds over 3 months) Seizure Chest pain Fever of 100.4F (38C) or higher, or as directed by your healthcare provider Excess drowsiness or inability to be awakened Shortness of breath Slow breathing under 8 breaths per minute Cough with colored sputum Redness, swelling or tenderness at an injection site Amoxicillin Trihydrate, Clavulanate Potassium Oral tablet What is this medicine? AMOXICILLIN; CLAVULANIC ACID (a mox i DESI in; STEVO quijano ic id) is a penicillin antibiotic. It is used to treat certain kinds of bacterial infections. It will not work for colds, flu, or other viral infections. How should I use this medicine? Take this medicine by mouth with a full glass of water. Follow the directions on the prescription label. Take at the start of a meal. Do not crush or chew. If the tablet has a score line, you may cut it in half at the score line for easier swallowing. Take your medicine at regular intervals. Do not take your medicine more often than directed. Take all of your medicine as directed even if you think you are better. Do not skip doses or stop your medicine early. Talk to your sorting grapple operator regarding the use of this medicine in children. Special care may be needed. What side effects may I notice from receiving this medicine? Side effects that you should report to your doctor or health healthcare advisory services manager as soon as possible: allergic reactions like skin rash, itching or hives, swelling of the face, lips, or tongue breathing problems dark urine fever or chills, sore throat redness, blistering, peeling or loosening of the skin, including inside the mouth seizures trouble passing urine or change in the amount of urine unusual bleeding, bruising unusually weak or tired white patches or sores in the mouth or throat Side effects that usually do not require medical attention (report to your doctor or health healthcare advisory services manager if they continue or are bothersome): diarrhea dizziness headache nausea, vomiting stomach upset vaginal or anal irritation What may interact with this medicine? allopurinol anticoagulants control pills methotrexate probenecid What if I miss a dose? If you miss a dose, take it as soon as you can. If it is almost time for your next dose, take only that dose. Do not take double or extra doses. Where should I keep my medicine? Keep out of the reach of children. Store at room temperature below 25 degrees C (77 degrees F). Keep container tightly closed. Throw away any unused medicine after the expiration date. What should I tell my health care provider before I take this medicine? They need to know if you have any of these conditions: bowel disease, like colitis kidney disease liver disease mononucleosis an unusual or allergic reaction to amoxicillin, penicillin, cephalosporin, other antibiotics, clavulanic acid, other medicines, foods, dyes, or preservatives or trying to get breast-feeding What should I watch for while using this medicine? Tell your doctor or health healthcare advisory services manager if your symptoms do not improve. Do not treat diarrhea with over the counter products. Contact your doctor if you have diarrhea that lasts more than 2 days or if it is severe and watery. If you have diabetes, you may get a false-positive result for sugar in your urine. Check with your doctor or health healthcare advisory services manager. control pills may not work properly while you are taking this medicine. Talk to your doctor about using an extra method of control. You have been given the following additional information: Dog Bite Laceration, Trunk Abrasion Drug Abuse Amoxicillin Trihydrate, Clavulanate Potassium Oral tablet (Electronically signed by Susan Colbert A.R.N.P. 01/31/2017 17:49)
--- NOTE | 2017-01-31 17:49 | ED DISCHARGE INSTRUCTIONS ---
Patient: BEAU GANDHI General Instructions [facility] VisitID: [id number] [place] [address] 26y, M Registration Date/Time: 01/31/2017 Multiple superficial and deep dog bites and anterior to the left bites and anterior chest and left elbow. Multiple superficial abrasions to the left anterior chest, right upper arm, right elbow, right forearm, right wrist and right hand and left upper arm, left elbow, left forearm, left wrist and left hand. Chronic substance abuse- marijuana, heroin, methamphetamines. INSTRUCTIONS Protect wound and keep wound area clean. Soak in warm soapy water twice daily. Apply neosporin twice daily. (patient is medically cleared to go with police to [facility]). Warnings: GENERAL WARNINGS: Return or contact your physician immediately if your condition worsens or changes unexpectedly, if not improving as expected, or if other problems arise. Specifically return if problem worsens. Prescription Medications: Augmentin 875 mg: take 1 tablet orally every 12 hours for 10 days. No refill. Follow-up: Follow up with your doctor in about three days as needed and for wound check. Call for an appointment. Summary of care provided to patient. Understanding of the discharge instructions verbalized by patient. ADDITIONAL INFORMATION Dog Bite If a dog has bitten you and the wound is deep enough to break the skin, an infection may occur. Therefore, you should watch for the warning signs listed below. The doctor may not close the wound completely. This is to allow fluid to drain in the event of an infection. Home Care Watch the wound for signs of infection listed below. In certain types of bites, antibiotics may be prescribed. Begin taking these as soon as possible, as directed until they are all gone. Rabies Prevention If you live in an area where rabies occurs in wild animals, the rabies virus can be passed to cats and dogs. An infected animal can pass the rabies virus to you during a bite. If ahealthy-looking pet dog has bitten you, it should be kept in a secure area for the next 10 days to watch for signs of illness. If the pet grinding machine tender wont cooperate with you, contact the [facility] animal control department (or local law enforcement). If the animal becomes ill or dies days, contact your animal control department at once. The animal must be tested for rabies. If the animal stays healthy for the next 10 days, then there is no danger of rabies in the dog or you. Pets fully vaccinated against rabies (2 shots) are at very low risk for the infection. However, because human rabies is almost always fatal, any biting dog should be kept in confinement for 10 days as an extra precaution. If a stray dog bit you, contact the animal control department. They can provide information on capture, quarantine, and animal rabies testing. If you are unable to locate the animal that bit you in the next 2days, and if rabies exists in your region, you must be evaluated for the rabies vaccine series. Contact your doctor or return here promptly. All animal bites should be reported to the [facility] animal control department. If you were not given a form to fill out, you can report it yourself by calling. Follow Up with your doctor as advised. Most skin wounds heal within 10 days. However, an infection may occur even with proper treatment. Check your woundevery 6 hoursfor 2 days, then at least once a day for the next two days for the signs of infection listed below. Get Prompt Medical Attention if any of the following occur: Signs of infection: Spreading redness Increased pain or swelling Fever of 100.4F (38C) or higher, or as directed by your healthcare provider Colored fluid or pus draining from the wound Headache, confusion, strange behavior, or a seizure (signs of a rabies infection) Laceration, Trunk (Sutures, [place], Tape, Glue) A laceration is a cut through the skin. This will usually require stitches (sutures) or favio if it is deep. Minor cuts may be treated with surgical tape closures or skin adhesive. Home care The following guidelines will help you care for you laceration at home: 1) Keep the wound clean and dry. If a bandage was applied and it becomes wet or dirty, replace it. Otherwise, leave it in place for the first 24 hours, then change it once a day or as directed. 2) If stitches or favio were used, change the bandage daily after the first 24 hours. Each day, look at the wound for any of the warning signs listed below. After removing the bandage, wash the area with soap and water. Use a wet cotton swab to loosen and remove any blood or crust that forms. After cleaning, keep the wound clean and dry. Talk with your doctor before applying any antibiotic ointment to the wound. Reapply the bandage. You may remove the bandage and shower as usual after the first 24 hours, but do not soak the area in water (no tub baths or swimming) until the stitches or favio are removed. 3) If surgical glue was used, keep the area clean and dry. If it becomes wet, blot it dry with a towel. 4) If skin glue was used, do not scratch, rub, or pick at the adhesive film. Do not place tape directly over the film. Do not apply liquid, ointment or creams to the wound while the film is in place. Do not clean the wound with peroxide and do not apply ointments. Avoid activities that cause heavy sweating until the film has fallen off. Protect the wound from prolonged exposure to sunlight or tanning lamps. You may shower as usual but do not soak the wound in water (no baths or swimming). 5) The doctor may prescribe an antibiotic cream or ointment. Do not stop taking this medication until you have finished the precribed course or the doctor tells you to stop. The doctor may also prescribe medications for pain. Follow the doctor's instructions for taking these medications. If you have chronic liver or kidney disease or ever had a stomach ulcer or GI bleeding, talk with your doctor before using these medicines. Follow-up care Follow up with your health care provider. Most skin wounds heal within ten days. However, an infection may sometimes occur despite proper treatment. Therefore, check the wound daily for the signs of infection listed below. Stitches or favio should be removed within 714 days. If surgical tape closures were used, you may remove them yourself after ten days, if they have not fallen off by then. If skin glue was used, the film will fall off by itself in 510 days. When to seek medical care Get prompt medical attention if any of these occur: Increasing pain in the wound Redness, swelling, or pus coming from the wound For chest back or abdomen wounds, watch for shortness of breath, painful breathing, increasing back or abdomen pain, blood in the stool or urine, weakness, dizziness, or fainting. Fever of 100.4F (38C) or higher, or as directed by your health care provider If stitches or favio come apart or fall out before your next appointment If the surgical tape closures fall off within seven days, or the wound edges re-open Bleeding not controlled by direct pressure Abrasions Abrasions are skin scrapes. Their treatment depends on how large and deep the abrasion is. Home Care: If you were given a bandage, change it once a day. If your bandage sticks to the wound, soak it in warm water until it loosens. Wash the area with soap and water to remove all the cream/ointment. You may do this in a sink, under a tub faucet or shower. Rinse off the soap and pat dry with a clean towel. Reapply cream/ointment according to your doctor's instructions. This will prevent infection and help prevent the bandage from sticking. Cover the wound with a fresh non-stick bandage (Telfa). Repeat steps 1 to 4 daily, or as directed by your doctor. If the bandage becomes wet or dirty, change it as soon as possible. You may use acetaminophen (Tylenol) or ibuprofen (Motrin, Advil) to control pain, unless another pain medicine was prescribed. [ NOTE : If you have chronic liver or kidney disease or ever had a stomach ulcer or GI bleeding, talk with your doctor before using these medicines.] Do not use ibuprofen in children under six months of age. Follow Up with your physician or this facility as directed by our staff. Most skin wounds heal within ten days. However, an infection may occur despite proper treatment. Therefore, look for the early signs of infection listed below. Get Prompt Medical Attention if any of the following occur: Increasing pain in the wound Increasing redness or swelling Pus coming from the wound Fever of 100.4F (38C) or higher, or as directed by your healthcare provider Drug Abuse Use and abuse of such drugs as marijuana, amphetamines (speed, crank), cocaine, heroin or prescription pain medicines (Vicodin, codeine), sedatives and sleeping pills (Valium, Klonopin), PCP, mescaline and LSD may lead to addiction or dependence. Once this occurs, you are at greater risk for any of the following: Craving for the drug and unable to stop using the drug even though you think you want to stop (psychological dependence) Drug withdrawal symptoms if you stop taking the drug (physical dependence) Loss of your job or your family Arrest, conviction and [facility] sentence for possession of an illegal substance or for driving under the influence of such a substance Accidental injuries to yourself or others while you are under the influence of the drug (in a car or at home). HIV infection (much greater risk if you use IV drugs) Other sexually transmitted diseases (herpes, chlamydia, gonorrhea and others) Severe and fatal infection of the heart valves (if you use IV drugs) Stroke, heart attack, hepatitis B or C, kidney failure from overdose Home Care: Admit you have a drug problem. Ask for help from your family and close friends. Seek professional help. This could be in the form of individual psychotherapy or counseling or an outpatient, inpatient, or residential drug treatment program. Join a self-help group for drug abuse. Avoid friends who abuse drugs themselves or tempt you to continue abusing drugs. Eat a balanced diet and begin a regular exercise program. Follow Up with your doctor or as advised by our staff. Contact one of the resources below for help. National [place] on Alcoholism and Drug Dependence www.ncadd.org 594-117-NULS Narcotics Anonymous www.na.org 725-843-9275 National Alcohol and Substance Abuse Information Center (for referral to treatment programs) www.addictioncareglobalscholar.com.[place] 155-280-8965 Get Prompt Medical Attention if any of the following occur: Agitation, anxiety, unable to sleep Unintended weight loss (more than 10 to 15 pounds over 3 months) Seizure Chest pain Fever of 100.4F (38C) or higher, or as directed by your healthcare provider Excess drowsiness or inability to be awakened Shortness of breath Slow breathing under 8 breaths per minute Cough with colored sputum Redness, swelling or tenderness at an injection site Amoxicillin Trihydrate, Clavulanate Potassium Oral tablet What is this medicine? AMOXICILLIN; CLAVULANIC ACID (a mox i DESI in; STEVO quijano ic id) is a penicillin antibiotic. It is used to treat certain kinds of bacterial infections. It will not work for colds, flu, or other viral infections. How should I use this medicine? Take this medicine by mouth with a full glass of water. Follow the directions on the prescription label. Take at the start of a meal. Do not crush or chew. If the tablet has a score line, you may cut it in half at the score line for easier swallowing. Take your medicine at regular intervals. Do not take your medicine more often than directed. Take all of your medicine as directed even if you think you are better. Do not skip doses or stop your medicine early. Talk to your office admin regarding the use of this medicine in children. Special care may be needed. What side effects may I notice from receiving this medicine? Side effects that you should report to your doctor or health respiratory care assistant as soon as possible: allergic reactions like skin rash, itching or hives, swelling of the face, lips, or tongue breathing problems dark urine fever or chills, sore throat redness, blistering, peeling or loosening of the skin, including inside the mouth seizures trouble passing urine or change in the amount of urine unusual bleeding, bruising unusually weak or tired white patches or sores in the mouth or throat Side effects that usually do not require medical attention (report to your doctor or health respiratory care assistant if they continue or are bothersome): diarrhea dizziness headache nausea, vomiting stomach upset vaginal or anal irritation What may interact with this medicine? allopurinol anticoagulants control pills methotrexate probenecid What if I miss a dose? If you miss a dose, take it as soon as you can. If it is almost time for your next dose, take only that dose. Do not take double or extra doses. Where should I keep my medicine? Keep out of the reach of children. Store at room temperature below 25 degrees C (77 degrees F). Keep container tightly closed. Throw away any unused medicine after the expiration date. What should I tell my health care provider before I take this medicine? They need to know if you have any of these conditions: bowel disease, like colitis kidney disease liver disease mononucleosis an unusual or allergic reaction to amoxicillin, penicillin, cephalosporin, other antibiotics, clavulanic acid, other medicines, foods, dyes, or preservatives or trying to get breast-feeding What should I watch for while using this medicine? Tell your doctor or health respiratory care assistant if your symptoms do not improve. Do not treat diarrhea with over the counter products. Contact your doctor if you have diarrhea that lasts more than 2 days or if it is severe and watery. If you have diabetes, you may get a false-positive result for sugar in your urine. Check with your doctor or health respiratory care assistant. control pills may not work properly while you are taking this medicine. Talk to your doctor about using an extra method of control. You have been given the following additional information: Dog Bite Laceration, Trunk Abrasion Drug Abuse Amoxicillin Trihydrate, Clavulanate Potassium Oral tablet (Electronically signed by Susan Colbert A.R.N.P. 01/31/2017 17:49)
--- NOTE | 2017-01-31 17:49 | ED MAR SUMMARY ---
..... Medication Administration Record [facility] [address] [place], [place] [id number] Patient: BEAU GANDHI Visit ID: [id number] 26y, M Weight: 81.6 kg Height/Length: 71 in BMI: 25.1 ALLERGIES: No Known Drug Allergy
--- NOTE | 2017-01-31 17:49 | ED MED RECONCILIATION SUMMARY ---
Patient: BEAU GANDHI Medication Reconciliation Report [facility] VisitID: [id number] [address] [place] [address] 26y, M Registration Date/Time: 01/31/2017 Weight: 81.6 kg Height/Length: 71 in. BMI: 25.1 ALLERGIES: No Known Drug Allergy The patient's Home Medications are listed below: NONE. The source(s) of the original Home Medication information: Not obtained. The following Medications were given to the patient in the Emergency Department: None. The following Medications were prescribed to the patient: Augmentin 875 mg: take 1 tablet orally every 12 hours for 10 days. No refill. -- Susan Colbert A.R.N.P.
--- NOTE | 2017-01-31 17:49 | ED MED RECONCILIATION SUMMARY ---
Patient: BEAU GANDHI Medication Reconciliation Report [facility] VisitID: [id number] [address] [place] [address] 26y, M Registration Date/Time: 01/31/2017 Weight: 81.6 kg Height/Length: 71 in. BMI: 25.1 ALLERGIES: No Known Drug Allergy The patient's Home Medications are listed below: NONE. The source(s) of the original Home Medication information: Not obtained. The following Medications were given to the patient in the Emergency Department: None. The following Medications were prescribed to the patient: Augmentin 875 mg: take 1 tablet orally every 12 hours for 10 days. No refill. -- Susan Colbert A.R.N.P.
--- NOTE | 2017-01-31 17:49 | ED MAR SUMMARY ---
..... Medication Administration Record [facility] [address] [place], [place] [id number] Patient: BEAU GANDHI Visit ID: [id number] 26y, M Weight: 81.6 kg Height/Length: 71 in BMI: 25.1 ALLERGIES: No Known Drug Allergy
== END 2017-01-31 16:15 | disposition home or self-care (01) ==
LOC: ED SRH 15:17
DX: S20.371A Other superficial bite of right front wall of thorax, initial encounter (principal); S50.372A Other superficial bite of left elbow, initial encounter; S50.811A Abrasion of right forearm, initial encounter; S60.511A Abrasion of right hand, initial encounter; S60.811A Abrasion of right wrist, initial encounter; S60.512A Abrasion of left hand, initial encounter; W54.0XXA Bitten by dog, initial encounter; Y93.9 Activity, unspecified; Y92.9 Unspecified place or not applicable; Y99.9 Unspecified external cause status